=== PATIENT | female | born 1980 | race African-American/Black ===

== ENCOUNTER 2019-04-26 06:14 | Day surgery (SDC) | payer OTHER ==
[2019-04-25 10:58] VITALS: BMI 28.0
[~2019-04-26 06:14] MED LIST: BUPIVACAINE HCL/PF (5 MG/ML) 30 ML VIAL IJ ONE; DEXAMETHASONE SOD PHOSPHATE 4 MG/1 ML VIAL NR ONE
[2019-04-26] MEDS ORDERED: DEXAMETHASONE SOD PHOSPHATE 4 MG/1 ML VIAL ONE (07:02)
[2019-04-26] MEDS ORDERED: BUPIVACAINE HCL/PF 0.5% (5MG/ML) 10 ML VIAL ONE (07:03)
[2019-04-26] MEDS ORDERED: BENZOIN TINCTURE SWABSTICK TP ONE (07:03)
[2019-04-26] MEDS ORDERED: LIDOCAINE HCL 1%, 10 MG/ML (20ML VIAL) ONE (07:03)
[2019-04-26] MEDS ORDERED: MIDAZOLAM HCL 2 MG/2 ML SINGLE DOSE VIAL ONE (07:42)
[2019-04-26] MEDS ORDERED: LIDOCAINE HCL/PF 2% SDV 5ML VIAL ONE (07:45)
[2019-04-26] MEDS ORDERED: PROPOFOL 20 ML ONE ×2 (07:46)
[2019-04-26] MEDS ORDERED: LIDOCAINE HCL 1%, 10 MG/ML (20ML VIAL) PNB ONE (07:52)
[2019-04-26] MEDS ORDERED: BUPIVACAINE HCL/PF (5 MG/ML) 30 ML VIAL IJ ONE ×2 (07:52→08:27)
[2019-04-26] MEDS ORDERED: ceFAZolin SODIUM 1 GM VIAL ONE (07:53)
[2019-04-26] MEDS ORDERED: ceFAZolin SODIUM 1 GM VIAL IVPB ONE (07:57)
[2019-04-26] MEDS ORDERED: KETOROLAC TROMETHAMINE 30 MG/1 ML VIAL ONE (08:17)
[2019-04-26] MEDS ORDERED: DEXAMETHASONE SOD PHOSPHATE 4 MG/1 ML VIAL NR ONE (08:27)
[2019-04-26] MEDS ORDERED: ONDANSETRON 4 MG/2 ML VIAL IVPUSH PRN (08:37)
[2019-04-26] MEDS ORDERED: oxyCODONE HCL 5 MG TABLET PO PRN (08:37)
[2019-04-26] MEDS ORDERED: LACTATED RINGERS SOLUTION 1,000 ML IV SCH (08:45)
[2019-04-26 10:41] VITALS: BP 134/82; PULSE 60; TEMP 98
--- NOTE | 2019-04-26 10:59 | OP ---
DATE OF OPERATION: 04/26/2019 SURGEON: Martina Moseley DPM, and Prince Thorne DPM RIGHT OF WAY CUTTER: Ashlyn Romero, PGY3 PREOPERATIVE DIAGNOSIS: Left foot 5th hammertoe. POSTOPERATIVE DIAGNOSIS: Left foot 5th hammertoe. PROCEDURE: Left foot 5th toe arthroplasty. ANESTHESIA: Local with MAC. CONDITION OF THE PATIENT: Stable. COMPLICATIONS: None. DESCRIPTION OF PROCEDURE: The patient was brought to the operating room and placed on the operating table in the supine position. Ancef 1 g was then administered intravenously for prophylaxis. After IV sedation was obtained, a local infiltrative block was then administered utilizing a 1:1 mixture of 1% lidocaine plain and 0.5% Marcaine plain, a total of 8 mL was injected throughout the surgical site, left foot, 5th digit. The left foot was then scrubbed, prepped, and draped in the usual aseptic fashion. Upon exsanguination of the left foot with an Esmarch bandage and previous placement of padding at the ankle, the pneumatic ankle tourniquet was inflated to 250 mmHg. Surgery began in the following manner. Attention was first directed to the dorsal aspect of the left foot, 5th toe, at the proximal interphalangeal joint. Using No. 15 blade, a full-thickness incision was made in an angular fashion with 3 converging semi-elliptical incisions from distal medial to proximal lateral including the hyperkeratotic tissue within the skin wedge. The skin wedge was then removed from the operative field and sent to Pathology. At this time, the extensor tendon was tenotomized at the proximal interphalangeal joint, and the head of the proximal phalanx was freed from its ligamentous attachments. Using a sagittal saw, the head of the proximal phalanx was resected and passed from the operative field and sent to Pathology. At this time, the head of the proximal phalanx was assessed, and all the sharp edges were smoothened. Next, a lateral middle-hemiphalangectomy was performed using arotaru dottie and double action bone cutter and the lateral aspect of the middle phalanx was resected and passed from the operative field and sent to Pathology. The deformity noted to be reduced fully at the 5th toe of left foot. At this time, the surgical site was irrigated with copious amount of normal saline with Bacitracin in it, and the extensor tendon was sutured using 3-0 Vicryl suture, and the skin was closed using 4-0 nylon suture in a simple interrupted suture fashion. Postoperative injections of a total of 5 mL was injected proximal to the surgical site, and postoperative dressings Betadine-soaked Adaptic, dry sterile dressing, and TARAN bandage applied to the left foot. At this time, the left ankle tourniquet was deflated. Immediate hyperemia was noted to all digits of the left foot. The patient tolerated the procedure and anesthesia well and was transferred to the post-anesthesia care unit with vital signs stable and vascular status intact to the left lower extremity. Patient will be discharged home once is stable per Anesthesia. GADIEL Abarca/[id number] MTDBismark
--- NOTE | 2019-04-29 11:09 | PATH ---
Surgical Pathology Report Patient Name: DANAY CORRALES [facility]. Rec. #: [id number] /Age/Gender: 1980 (Age: 38) / F Account: [id number] Location: [facility] SURGICAL Taken: 04/26/2019 Received: 04/26/2019 Reported: 04/29/2019 Physicians: Martina Moseley DPM Specimen(s) Received BONE AND SKIN FROM LEFT FOOT Clinical History Left foot fifth digit hammertoe Final Diagnosis BONE AND SKIN, LEFT FIFTH TOE, EXCISION: BONE WITH ATTACHED ARTICULAR CARTILAGE, AND SKIN WITH HYPERKERATOSIS AND PARAKERATOSIS. Electronically Signed Lamont Miller M.D. Gross Description Received in formalin labeled "bone and skin left foot fifth toe," is a 1.1 x 1.1 x 0.3 cm aggregate of zavaleta, irregular to fragmented portions of bone. Also received within the same container is a 1.8 x 0.7 cm zavaleta, elliptical, unoriented portion of skin excised to a depth of 0.3 cm. The epidermal surface displays a 0.8 x 0.5 cm zavaleta, ulcerated lesion. Shirt Marker sections are submitted in one cassette, following decalcification. /04/26/201904/26/2019
== END 2019-04-26 11:00 | disposition home or self-care (01) ==
LOC: JASU-SURG 06:14
PROVIDERS: ATTEND Podiatrist Foot Surgery
PROC: 0SRQ0JZ Replacement of Left Toe Phalangeal Joint with Synthetic Substitute, Open Approach (ICD-10-PCS; principal; 2019-04-26 07:30)
DX: M20.42 Other hammer toe(s) (acquired), left foot (principal)
CPT/HCPCS: 73630-TC-LT; 84703; 88304-TC; 88311-TC; 94760